=== PATIENT | female | born 1960 | race Hispanic/Latino ===

== ENCOUNTER 2021-10-30 04:11 | Emergency (ER) | payer OTHER ==
[~2021-10-30] VITALS: Ht 160 cm; Wt 57.6 kg
[2021-10-30] MEDS ORDERED: NIFEDIPINE 10 MG CAP PO ONE (04:30)
[2021-10-30] MEDS ORDERED: HYDROCODONE/ACETAMINOPHEN 10/325 MG TAB PO ONE (04:30)
[2021-10-30] MEDS ORDERED: KETOROLAC 60 MG VIAL (30MG/ML) IM ONE (04:30)
[2021-10-30] MEDS ORDERED: IBUP-2070 PO (04:52)
[2021-10-30] MEDS ORDERED: ACET-2079 PO (04:52)
[2021-10-30 05:29] VITALS: BP 150/72
[2021-10-30] MEDS ORDERED: MORPHINE 4 MG SYG IM ONE (05:30)
== END 2021-10-30 05:46 | disposition home or self-care (01) ==
LOC: EDH 04:11
DX: S92.302A Fracture of unspecified metatarsal bone(s), left foot, initial encounter for closed fracture (principal); I10 Essential (primary) hypertension; Z79.899 Other long term (current) drug therapy; Z90.89 Acquired absence of other organs; X50.1XXA Overexertion from prolonged static or awkward postures, initial encounter; Y93.89 Activity, other specified; Y92.89 Other specified places as the place of occurrence of the external cause; Y99.8 Other external cause status
CPT/HCPCS: 73630; 96372 ×2; 99284; J1885; J2270